=== PATIENT | female | born 1970 | race Caucasian/White ===

== ENCOUNTER 2022-02-21 05:34 | Day surgery (SDC) | payer OTHER, SELFPAY ==
--- NOTE | 2022-02-15 11:14 | EKG12_ITS ---
Test Reason : Blood Pressure : / mmHG Vent. Rate : 076 BPM Atrial Rate : 076 BPM P-R Int : 132 ms QRS Dur : 066 ms QT Int : 384 ms P-R-T Axes : 023 018 046 degrees QTc Int : 432 ms Normal sinus rhythm Normal ECG Confirmed by ORTEGA PRESTON, DANNI ([id number]), technical editor DARYL VIDAL ([id number]) on 02/16/2022 8:49:45 AM Referred By: NOE Confirmed By:DANNI VIVAS MD
[2022-02-15 11:29] LABS: Hematocrit 39.5 % (37-47); Hemoglobin 12.5 g/dL (12.0-15.0); Mean Corp Hgb Conc 31.6 g/dL (32-36); Mean Corpuscular Hgb 27.5 pg (27.0-32.0); Platelet Count 304 K/mm3 (150-450); RBC Distribution Width CV 14.2 % (11.6-14.6); RBC Distribution Width SD 45.4 fl (35.1-43.9); Red Blood Count 4.54 M/mm3 (4.2-5.4); White Blood Count 5.9 K/mm3 (4.4-11.0)
[2022-02-15 11:33] LABS: International Normalized Ratio 0.9; Magnesium 2.5 mg/dL (1.6-2.6)
[2022-02-15 11:34] LABS: Partial Thromboplast Time 31.2 Seconds (24.1-36.2)
[2022-02-15 11:37] LABS: Creatinine, Serum 0.59 mg/dL (0.55-1.02); EST Glomerular Filtration Rate 114 mL/min (>60); Est Glom Filt Rate - Afr Amer 138 mL/min (>60)
--- NOTE | 2022-02-20 21:13 | PCM.HP.BLA ---
History and Physical Date of Admission: 02/21/22 Surgical History and Physical Keturah Rodney, a 52 year old female 4 0 0 0 4, presents for RAVH/BS on February 21, 2022. -- Heavy Menses; Submucous Fibroids -- Keturah presents here today as referral from Dr. Jackson for history of Menorrhagia x 2 years Often has cramping when she has the heavy bleeding. Keturah characterizes the quality Heavy bleeding. Severity is moderate and not improving. Additional comments are: U/S today showed multiple fibroids, one submucous and about 2.3 cm. MEDICATIONS HISTORY: Patient is also takin. omeprazole 20 mg capsule,delayed release, One pill by mouth once a day 2. losartan 50 mg tablet, One pill by mouth once a day ALLERGIES: Ampicillin, Rash, Egg, Intolerance-diarrhea, Banana and Gastritis Infections - Chicken pox Illnesses - HTN, GERD Accidents - None Hospitalizations - see surgery Review of Systems: GENERAL - Denies fever, or chills SKIN - Denies skin changes EYES - Denies visual changes EARS - Denies difficulty hearing NOSE - Denies nasal congestion or bleeding MOUTH - Denies sore throat or difficulty swallowing NECK - Denies pain or swelling RESPIRATORY - Denies shortness of breath or wheezing CARDIOVASCULAR - Denies palpitations or chest pain GASTROINTESTINAL - Denies nausea, vomiting, diarrhea, constipation GENITOURINARY - Denies dysuria, frequency of urination, incontinence of urine MUSCULOSKELETAL - Denies joint or muscle pain NEUROLOGICAL - Denies localized numbness or weakness PSYCHIATRIC - Denies depression or anxiety ENDOCRINE - Denies heat or cold intolerance, weight loss or gain HEMATO-IMMUNOLOGIC - Denies excesive bleeding with cuts SOCIAL HISTORY: Alcohol Use - occasionally Smoking - Never Diet - no special diet Lifestyle - moderate stress lifestyle and Exercise - active work and walking Seat Belt Use - always Employer - [employer] [place] Illicit Drug Use - None Sexual Activity - Spouse-Sig Other Name - Abrahan Spouse-Sig Other Occupation - The car easily beat Children Name(s) - 4 children Control - Prior Tubal FAMILY HISTORY: MENSTRUAL HISTORY: LMP Known?- DefiniteAmount/Duration - 4-5 DAYS, Regularity - Regular, Frequency - monthly days, LMP - 02/11/22, Age Onset Menarche - 14 PAST PREGNANCIES: Total Pregnancies - 4; Full Term Pregnancies - 4; Premature - 0; Abortions, Induced - 0; Abortions, Spontaneous - 0; Ectopics - 0; Multiple Births - 0; Living Children - 4 SURGICAL HISTORY: 1. 06/02/1995 ; Dr. Vik Pope - 2. 1998 Tubal ; - PHYSICAL EXAM BP- 112/70 Sitting, Right arm, regular cuff Weight- 152.0 lbs Height- 60 inch BMI:29.7 CONSTITUTIONAL - NAD, well nourished, and well developed HEENT - Normocephalic, PERRLA, EOMI NECK - No nodes, no nuchal rigidity and thyroid normal size and texture LYMPH NODES - Palpation of lymph nodes in neck and groins within normal limits LUNGS - CTA x2 without wheezes, crackles or rales CARDIAC - Regular rate and rhythm without rubs, murmurs, or gallops ABDOMEN - Without hepatosplenomegaly, distention, masses, rebound, or guarding; normal bowel sounds; no hernias EXTREMITIES - No edema or calf tenderness NEUROLOGICAL - Cranial nerves II-XII grossly intact PSYCHIATRIC - A and O to time, place, person, mood and affect External Genitial Vagina - non-tender without lesions Urethra/Urethral Meatus - non-tender Bladder - non-tender Vagina - vaginal christina are pink and moist without loss of rugae and no evidence of atropy Cervix - without cervical motion tenderness and has normal size and features without evident lesions Uterus - enlarged uterus 8 wks, wt 125-150 g Adnexa - clear without massess or tenderness Pap - deferred ASSESSMENT/PLAN: 1. Premenopause Menorrhagia and Submucous Leiomyoma Extremely heavy menses. Discussed treatment options including expectant management after EMBx, proceeding with RAVH/BS (prior ) or going ahead with endometrial ablation with lower expectation of success. Pt desires proceeding with the hysterectomy. Discussed RBAs and all questions answered.
[2022-02-21] VITALS (14 sets, daily range): BP systolic 117–153; BP diastolic 65–84; PULSE 64–95; RESP 14–19; TEMP 36.4–37.1; O2SAT 95–100; BMI 29.7
[2022-02-21] MEDS: Lactated Ringers 1,000 ML 40 ML IV (06:40)
[2022-02-21] MEDS: Acetaminophen 500 MG Tablet 1000 MG PO (06:41)
[2022-02-21] MEDS: Gabapentin 600 MG Tablet PO (06:41)
[2022-02-21 07:26] LABS: Bedside Glucose 106 mg/dL (74-106)
--- NOTE | 2022-02-21 07:30 | HYST_PTH ---
PATIENT: EVE [place] [facility] [place][id number] AGE/SX: 52/F ROOM: RE02/21/[address]: Dr. Thompson Castellanos MD : 1970 BED: DIS: 02/21/2022 SPEC #: [id number] RECD: 02/21/22 11:46 STATUS: SHERLEY RERickey #: [id number] ACE: 02/21/22 07:[address]: Thompson Castellanos DEPT: SURGICAL PATHOLOGY RECD BY: Kassie Goyal ENTERED: 02/21/22 12:51 SP TYPE: HYSTERECT OTHR DR: Dr. Maty Jackson MD Tissues: Uterus, NOS Procedures: Surgery Specimen Level V HEADER OPERATION: Robotic assisted vaginal hysterectomy, bilateral salpingectomy PRE-OP DIAGNOSIS: Premenopause menorrhagia and submucous leiomyoma TISSUE SUBMITTED: Uterus, cervix, bilateral fallopian tubes MICROSCOPIC DIAGNOSIS Uterus, hysterectomy: Cervix ? nabothian cysts and mild chronic inflammation. Endometrium ? proliferative endometrium. Myometrium ? leiomyomas and adenomyosis. Right and left fallopian tubes ? consistent with hydrosalpinx. AM:katherine 02/22/2022 MICROSCOPIC DESCRIPTION Slides are reviewed. GROSS DESCRIPTION Received in fixative is one container labeled with the patient's name and designated uterus, cervix, bilateral fallopian tubes. The specimen consists of a hysterectomy specimen consisting of uterus with cervix and attached bilateral fallopian tubes. The uterus with cervix weighs 150 gm and measures 11.5 x 7 x 6 cm. The serosal surface is barros, glistening. The ectocervical mucosa is unremarkable. The external os is circular in contour. The endocervical canal measures 4.5 cm in length and the endocervical mucosa is barros, glistening and unremarkable. The triangular endometrial cavity measures 5.5 cm in length and up to 3 cm in width. The endometrium is barros, glistening and shows a small barros-pink polyp measuring 0.3 cm in greatest dimension. The endometrium measures up to 0.2 cm in thickness. Sections of the uterine wall reveal multiple intramural nodular masses. The largest mass measures 1 cm in greatest dimension. Sections of these masses reveal barros whorled cut surfaces without areas of hemorrhage, necrosis or cystic degeneration. One possible submucosal nodular mass is also noted measuring 0.5 cm in greatest dimension. The uninvolved uterine wall measures up to 3 cm in thickness. The right fallopian tube measures 6 cm in length and 0.5 cm in diameter. The fimbrial end is identified. It is interrupted in the middle consistent with previous tubal ligation. The proximal portion of the fallopian tube shows a dilated lumen filled with hemorrhagic fluid. Sections do not reveal any mass lesion. The left fallopian tube is similar appearance to right and measures 5.5 cm in length and 0.5 cm in diameter. Sections reveal unremarkable cut surfaces. Concrete Pouring Supervisor sections are submitted in nine cassettes as follows: 1??anterior cervix, 2 - posterior cervix, 3 & 4 - anterior uterine wall (cassette 3 contains the possible endometrial polyp), 5 & 6 - posterior uterine wall (cassette 5 contains the possible submucosal leiomyoma), 7 - intramural nodular masses, 8 - right fallopian tube, 9 - left fallopian tube. / SJ:katherine 02/21/2022 TC:1 CPT: 81866
--- NOTE | 2022-02-21 07:32 | PCM.OPRPT ---
Report of Operation Date of Procedure: 02/21/22 Pre-Operative Diagnosis: Menorrhagia, Submucous Fibroids Post-Operative Diagnosis: Menorrhagia, Submucous Fibroids Surgery/Procedure Performed:: Robotic Assisted Vaginal Hysterectomy and Bilateral Salpingectomy Description of Surgical Findings:: 10 cm uterus with normal-appearing fallopian tubes and ovaries. Evidence of prior sections and tubal ligation. Surgeon: Thompson Castellanos aeronautical products sales engineer: Hossein Lieberman Type of Anesthesia: General (Endotracheal) Anesthesiologist: Osmel Castellanos Specimen's removed: Uterus and bilateral fallopian tubes Drains: Damon to straight drain (removed after surgery) Estimated Blood Loss (mL): Minimal Fluids Replaced: Crystalloid Description of Procedure: Surgeon: Thompson Castellanos MD, FACOG Indication: This is a 52 year old patient who has been having problems with extremely heavy periods. Conservative measures have not been helpful. The patient has been counseled regarding the risks, benefits and alternatives of this procedure including the possibility of bleeding, infection, and injury to surrounding structures such as bowel bladder and all questions were answered. She understands that if BSO is needed that she will need to be on HRT for an indefinite period of time. Procedure: Pt taken to the operating room where, after induction of general anesthesia, the patient was prepped and draped in the usual sterile fashion and placed on a non-slip Huggy-u-vac device. Trendelenburg test was satisfactory. Bladder was drained of urine with a Damon catheter which was left in place. Anterior cervix grasped and cervix was dilated to about 3-4 mm. Uterus sounded to 10 cms. 0-Vicryl suture was placed at the 3:00 and 9:00 position of the cervix. A medium Advincula Senior Information Security Engineer Uterine Manipulator was then placed in the uterus and attention was turned to the laparoscopic portion of the procedure. Ropivocaine 0.5% was injected approximately 2-3 cm superior to the umbilicus and an 8 mm robotic camera port was introduced directly with intraperitoneal placement confirmed with CO2 insufflation. 8 mm robotic side ports were introduced under direct visualization approximately 10 cm lateral and 2 cm inferior to the umbilical port. A 5 mm left upper quadrant port was introduced and airseal insufflation with CO2 was started. The above findings were noted. Robot was docked without difficulty and attention turned to the robotic portion of the procedure. Approximately 20 cc of Ropivicaine was used. Bilateral mesosalpinx were ligated with 35 todd bipolar coagulation to the level of the round ligament. The posterior aspect of the cervix was identified and then opened for about 1 cm using 25 watt monopolar cautery. Bladder flap was opened and divided to the level of the round ligaments using monopolar cautery. Progressive bites were then ligated on each side of the cervix with 35 todd bipolar cautery to the uterine arteries. The anterior vaginal mucosa was entered and cervix circumscribed with monopolar cautery. Uterus and attached tubes were removed through the vagina. Vaginal cuff was closed first with 0-Vicryl Michael stitches placed at each angle followed by closure of the mid-cuff with 0-Monocryl V-lock suture in two layers. Pelvis was copiously irrigated with saline and the right and left ureters were noted to peristalse. Robot was undocked and trocars were removed with as much gas as possible. Incisions were closed with 4-0 Monocryl subcuticular sutures and incisions covered with steri-strips. The patient tolerated the procedure well and was taken to the recovery room in satisfactory condition. Sponge, instruments and needle counts were all correct. There were no apparent complications of the surgery. Ancef 2 gms IV was given prior to the procedure. Estimated Blood Loss: Minimal Specimen to Pathology: Uterus and bilateral fallopian tubes Grafts/Implants Used: None Complications None Admit VTE Documentation VTE Present on Admission: Yes VTE Mechan Device Prophylaxis: SCD's
[2022-02-21] MEDS: Cefazolin 2 GM in 0.9% Normal Saline 100 ML IV (07:35)
[2022-02-21] MEDS: Ropivacaine 0.5% 30 ML Vial (07:59)
--- NOTE | 2022-02-21 09:13 | PCM.DC ---
Discharge Instructions Diet Discharge Diet: No restrictions Activity Discharge Activity: May Shower and May Take a Tub Bath May resume sexual activity in: 6 weeks (nothing in the vagina.) Lifting Restrictions: 25 pounds for 6 weeks. Additional Activity Instructions:: Nothing in the vagina for 6 weeks please; no lifting more than 20-25 lbs for 6 weeks. Use Ibuprophen 800 mg orally every 8 hours as needed for pain. Can also add Tylenol 1000 mg every 8 hours if needed for pain. If Ibuprophen and Tylenol are not effective then use the Oxycodone but keep in mind it can cause serious constipation issues. Drink lots of water. Call if bleeding more than a pad per hour. Use the colace as constipation is a big issue after this type of surgery. Steps and walking are OK. Activity is encouraged but do not over do it !! Dressing / Incision Call your doctor if your incision/area has: Continuous Slow Oozing, Sudden Increased Bleeding, Increased Pain/ Swelling, Increased Redness and Foul Smelling Discharge Call your doctor if you observe: Fever of 101 or Higher, Inability to urinate, Inability to have a bowel movement, Using more than 1 pad per hour and - (Some vaginal bleeding may be noted for up to 4-8 weeks.) Cleanse incision/area with: - (Let the soapy water run over your incision, rinse and pat dry.) Additional Dressing/Incision Instructions:: The white strips (Steri Strips) on your incisions will fall off on their own. If they fall off and it bothers you it is okay to put Band-Aids across the incisions. Follow Up Care Please Follow Up With: Thompson Castellanos MD When: Call [phone] for an appointment to be seen in 2 weeks. Test Results: Test results from this visit will be discussed in further detail at your follow-up appointment, if applicable. Discharge Plan Admission Primary Reason for Your Visit: Robotic Assisted Vaginal Hysterectomy and Bilateral Salpingectomy Attending Provider: Thompson Castellanos Primary Care Provider: Maty Jackson Discharge Orders/Prescriptions Prescriptions: New docusate sodium 100 mg tablet 100 mg PO BID PRN (Reason: constipation) Qty: 60 RF: 1 oxycodone 5 mg capsule 5 mg PO Q6H PRN (Reason: pain (scale score 7-10)) 7 Days Qty: 14 RF: 0 Continued omeprazole 20 mg capsule,delayed release(/EC) 20 mg PO DAILY RF: 0 losartan 50 mg tablet 50 mg PO DAILY RF: 0 Other Ambulatory Orders: 12 Lead EKG (Routine) Timeframe: [id number] Location: None Selected Ordered By: Dr. Osmel Castellanos Referrals / Follow Up: Maty Jackson MD [Primary Care Provider] - Disposition Disposition (needs filled in before D/C Order can be placed): Home, Self Care
[2022-02-21] MEDS: Ondansetron 4 MG/2 ML Vial IV (09:51)
[2022-02-21] MEDS: oxyCODONE 5 MG Tablet PO (12:18)
== END 2022-02-21 13:28 | disposition home or self-care (01) ==
LOC: SDC 05:37 → AC 05:39
PROVIDERS: Anesthesiology; PCP Family Medicine; Referring Provider Obstetrics & Gynecology; Visit Provider Obstetrics & Gynecology
PROC: 0UT90ZZ Resection of Uterus, Open Approach (ICD-10-PCS; CPT 58262; principal; 2022-02-21 07:10)
DX: D25.0 Submucous leiomyoma of uterus (principal); N80.0 Endometriosis of uterus; N88.8 Other specified noninflammatory disorders of cervix uteri; N70.11 Chronic salpingitis; I10 Essential (primary) hypertension; K21.9 Gastro-esophageal reflux disease without esophagitis; Z79.899 Other long term (current) drug therapy
CPT/HCPCS: 58262; 36415; 82565; 82962; 83735; 85027; 85610; 85730; 86850; 86900; 86901; 88307; 93005; J7120; A4216; J2405; J3475